=== PATIENT | male | born 1950 | race African-American/Black ===

== ENCOUNTER 2018-04-29 23:59 | Emergency (ER) | payer MEDICARE ==
[~2018-04-29] VITALS: Ht 180.3 cm; Wt 109.1 kg
[2018-04-30 00:07] VITALS: Ht 180.3 cm; Wt 109.1 kg
[2018-04-30] MEDS ORDERED: htn med (00:09)
[2018-04-30] MEDS ORDERED: ULTRAM50 MG PO (01:11)
[2018-04-30 02:10] VITALS: BP 128/70
== END 2018-04-30 02:02 | disposition home or self-care (01) ==
LOC: D.ER 23:59
DX: S20.219A Contusion of unspecified front wall of thorax, initial encounter (principal); W18.2XXA Fall in (into) shower or empty bathtub, initial encounter; Y93.E1 Activity, personal bathing and showering; Y92.012 Bathroom of single-family (private) house as the place of occurrence of the external cause; I10 Essential (primary) hypertension